=== PATIENT | female | born 1980 | race Caucasian/White ===

== ENCOUNTER 2016-07-26 17:20 | Emergency (ER) | payer OTHER ==
[~2016-07-26] VITALS: Ht 162.6 cm; Wt 122.5 kg
[2016-07-26 20:30] VITALS: BP 144/86; PULSE 90; RESP 18; TEMP 97.8; O2SAT 99
--- NOTE | 2016-07-26 20:30 | NUR ---
PT WAS TRIAGE LATER BEAUSE NAME WAS NOT ON THE TRACKER.
--- NOTE | 2016-07-26 20:56 | NUR ---
Patient to ER bed 6 to gown for evaluation. Side rails up. Report given to Tomeka HERMAN.
--- NOTE | 2016-07-26 21:00 | NUR ---
Patient to ER C/O left side chest pain 11/21, patient states the pain is located above her left breast, localized in the breast tissue, states pain is on and off dull & pulling like 11/21. AAOx4, unlabored breathing, no signs of acute distress.
--- NOTE | 2016-07-26 21:02 | NUR ---
ER SHILO Alfred at bedside for evaluation
[2016-07-26] MEDS ORDERED: IBUPROFEN 600 MG TABLET PO ONE (21:15)
[2016-07-26 21:37] LABS: BASOPHILS % (AUTO) 0.6 % (0.0-2.0); EOSINOPHILS # (AUTO) 0.2 K/uL (0.0-0.4); EOSINOPHILS % (AUTO) 3.1 % (0.0-4.0); HEMATOCRIT 41.2 % (36-48); HEMOGLOBIN 13.4 g/dL (12.0-16.0); LYMPHOCYTES # (AUTO) 2.1 K/uL (1.0-5.5); LYMPHOCYTES % (AUTO) 28.1 % (20.5-51.5); MEAN CORPUSCULAR HEMOGLOBIN 23 pg (27-31); MEAN CORPUSCULAR HGB CONC 33 % (32-36); MEAN CORPUSCULAR VOLUME 72 fL (79.0-98.0); MONOCYTES # (AUTO) 0.5 K/uL (0.0-1.0); NEUTROPHILS # (AUTO) 4.9 K/uL (1.8-7.7); NEUTROPHILS % (AUTO) 62.2 % (40.0-70.0); PLATELET COUNT (AUTO) 395 K/uL (130-430); RED BLOOD CELL COUNT(AUTO) 5.71 MIL/uL (4.2-6.2); RED CELL DISTRIBUTION WIDTH 16.8 % (9.0-15.0); WHITE BLOOD COUNT (AUTO) 7.7 K/uL (4.8-10.8)
[2016-07-26 21:40] LABS: CLARITY/URINE SL HAZY (CLEAR); COLOR,URINE YELLOW (YELLOW); GLUCOSE,URINE NEGATIVE (NEGATIVE); KETONES,URINE NEGATIVE (NEGATIVE); PROTEIN URINE NEGATIVE (NEGATIVE)
[2016-07-26 21:41] LABS: BILIRUBIN,URINE NEGATIVE (NEGATIVE); LEUKOCYTE ESTERASE ,URINE NEGATIVE (NEGATIVE); NITRITE, URINE NEGATIVE (NEGATIVE); UROBILINOGEN,URINE 0.2 (0.2-1.0)
[2016-07-26 21:44] LABS: CALCIUM 8.4 mg/dL (8.4-11.0); CREATININE 0.75 mg/dL (0.55-1.30); POTASSIUM 3.6 mmol/L (3.5-5.1)
[2016-07-26 21:50] LABS: ALBUMIN 3.7 g/dL (3.4-4.8); TOTAL BILIRUBIN 0.3 mg/dL (0.0-1.0); TOTAL PROTEIN, SERUM 7.3 g/dL (6.4-8.3)
[2016-07-26 21:53] LABS: BLOOD, URINE TRACE (NEGATIVE)
--- NOTE | 2016-07-26 22:00 | NUR ---
Radiology at bedside with portable for chest xray
[2016-07-26 22:01] LABS: BACTERIA,URINE MODERATE /HPF (None Seen); MUCUS,URINE 2+ /LPF (None Seen); RBC,URINE 0-3 /HPF (0-3); WBC,URINE 0-3 /HPF (0-3)
[2016-07-26] MEDS ORDERED: KETOROLAC TROMETHAMINE 60 MG/2 ML VIAL IM ONE (22:30)
[2016-07-26 22:48] VITALS: BP 127/81; PULSE 72; RESP 17; TEMP 98.1; O2SAT 98
--- NOTE | 2016-07-26 22:48 | NUR ---
Patient given written and verbal discharge instructions and verbalizes understanding. ER [employer]IE[employer] ENGINEER Aubrie discussed with patient the results and treatment provided. Patient in stable condition. ID arm band removed. Rx of motrin given. Patient educated on pain management and to follow up with PMD. Pain Scale 0/10. Opportunity for questions provided and answered.
== END 2016-07-26 22:48 | disposition home or self-care (01) ==
LOC: SED 17:20
DX: R07.89 Other chest pain (principal); R03.0 Elevated blood-pressure reading, without diagnosis of hypertension; R20.9 Unspecified disturbances of skin sensation
CPT/HCPCS: 36415; 71010; 80053; 81000; 81025; 84484; 85025; 87086; 93005; 96372; 99285; J1885

== ENCOUNTER 2018-06-10 15:24 | Emergency (ER) | payer OTHER ==
[~2018-06-10] VITALS: Ht 162.6 cm; Wt 138.3 kg
[2018-06-10 15:48] VITALS: BP_SYST 163
[2018-06-10] MEDS ORDERED: KETOROLAC TROMETHAMINE 60 MG/2 ML VIAL IM ONE (18:15)
[2018-06-10] MEDS ORDERED: MORPHINE 4 MG/ML INJ. SYRINGE IM ONE (18:45)
[2018-06-10 20:25] VITALS: BP_SYST 142
== END 2018-06-10 20:25 | disposition home or self-care (01) ==
LOC: SED 15:24
DX: M54.41 Lumbago with sciatica, right side (principal); R03.0 Elevated blood-pressure reading, without diagnosis of hypertension
CPT/HCPCS: 81025; 96372; 99283; J1885; J2270

== ENCOUNTER 2019-01-31 12:55 | Emergency (ER) | payer MEDICAID, OTHER ==
[~2019-01-31] VITALS: Ht 162.6 cm; Wt 132.9 kg
[2019-01-31 13:01] VITALS: BP_SYST 182
[2019-01-31 14:21] LABS: BASOPHILS # (AUTO) 0.1 K/uL (0.0-0.2); EOSINOPHILS # (AUTO) 0.1 K/uL (0.0-0.4); EOSINOPHILS % (AUTO) 2.4 % (0.0-4.0); HEMATOCRIT 44.3 % (36-48); HEMOGLOBIN 15.1 g/dL (12.0-16.0); LYMPHOCYTES # (AUTO) 1.6 K/uL (1.0-5.5); LYMPHOCYTES % (AUTO) 28.3 % (20.5-51.5); MEAN CORPUSCULAR HEMOGLOBIN 29 pg (27-31); MEAN CORPUSCULAR HGB CONC 34 % (32-36); MEAN CORPUSCULAR VOLUME 84 fL (79.0-98.0); MONOCYTES # (AUTO) 0.3 K/uL (0.0-1.0); MONOCYTES % (AUTO) 4.6 % (1.7-9.3); NEUTROPHILS # (AUTO) 3.6 K/uL (1.8-7.7); NEUTROPHILS % (AUTO) 63.7 % (40.0-70.0); PLATELET COUNT (AUTO) 262 K/uL (130-430); RED BLOOD CELL COUNT(AUTO) 5.28 MIL/uL (4.2-6.2); RED CELL DISTRIBUTION WIDTH 13.9 % (9.0-15.0); WHITE BLOOD COUNT (AUTO) 5.7 K/uL (4.8-10.8)
[2019-01-31 14:47] LABS: CREATININE 0.73 mg/dL (0.55-1.30); POTASSIUM 3.9 mmol/L (3.5-5.1)
[2019-01-31 14:51] LABS: ALBUMIN 3.2 g/dL (3.4-4.8); TOTAL BILIRUBIN 0.5 mg/dL (0.0-1.0)
[2019-01-31 15:06] VITALS: BP_SYST 162
[2019-01-31] MEDS: NACL 0.9% 1,000 ML IV ONE (18:36)
[2019-01-31] MEDS: DIPHENHYDRAMINE INJ 50 MG/ML VIAL IVP ONE (18:37)
[2019-01-31] MEDS: PROCHLORPERAZINE EDISYLATE 10 MG/2 ML VIAL IVP ONE (18:38)
== END 2019-01-31 15:01 | disposition home or self-care (01) ==
LOC: SED 12:55
DX: G43.909 Migraine, unspecified, not intractable, without status migrainosus (principal); H10.9 Unspecified conjunctivitis; R03.0 Elevated blood-pressure reading, without diagnosis of hypertension; E11.9 Type 2 diabetes mellitus without complications; Z90.710 Acquired absence of both cervix and uterus
CPT/HCPCS: 36415; 70450; 80053; 85025; 96361; 96374; 96375; 99284; J0780; J1200; J7030